=== PATIENT | male | born 1955 | race Asian ===

== ENCOUNTER 2016-10-16 12:00 | Inpatient (IN) | payer OTHER ==
[~2016-10-16] VITALS: Ht 167.6 cm; Wt 75.7 kg
[2016-10-23] VITALS (17 sets, daily range): BP systolic 104–134; BP diastolic 7–85
[2016-10-23] MEDS ORDERED: NKM (05:54)
[2016-10-23] MEDS ORDERED: Thrombin 5000 units TOPIC ONE (06:29)
[2016-10-23] MEDS ORDERED: Surgicel 4in x 8in TOPIC ONE (06:30)
[2016-10-23] MEDS ORDERED: Heparin 5000 units/ml inj ONE (06:30)
[2016-10-23] MEDS ORDERED: Lidocaine 1% Plain 30 ml INJ ONE ×2 (06:30→07:00)
[2016-10-23] MEDS ORDERED: Bacitracin 50000 Units Vial ONE (06:30)
[2016-10-23] MEDS ORDERED: LR 1000ml 1,000 ML IVLG SCH (06:35)
--- NOTE | 2016-10-23 06:39 | Anethesia Preoperative Eval ---
Anesthesia Pre-op PMH/ROS General Date of Evaluation: Oct 23, 2016 Time of Evaluation: 07:08 Anesthesiologist: Ruben ASA Score: ASA 2 Mallampati Score Class I : Soft palate, uvula, fauces, pillars visible Class II: Soft palate, uvula, fauces visible Class III: Soft palate, base of uvula visible Class IV: Only hard plate visible Mallampati Classification: Class II Surgeon: Manuel Diagnosis: Back Pain Surgical Procedure: ALIF L4-5, PSF Screws, Intrstuments Anesthesia History: none Family History: no anesthesia problems Allergies: Coded Allergies: No Known Allergies (Unverified , 10/22/16) Medications: see eMAR Past Medical History Cardiovascular: Reports: other - HL PSxH Narrative: Appendectomy Anesthesia Pre-op Phys. Exam Physician Exam Last Vital Signs Date Time Temp Pulse Resp B/P Pulse Ox O2 Delivery O2 Flow Rate FiO2 10/23/16 06:11 97.2 56 18 123/79 98 Room Air Constitutional: NAD Neurologic: CN 2-12 intact Cardiovascular: RRR Respiratory: CTA Gastrointestinal: S/NT/ND Airway Exam Mallampati Score: Class II MO: full ROM: full Teeth: intact Anesthesia Pre-op A/P Risk Assessment & Plan Assessment: ASA 2 Plan: GA, BIS, Glidescope Status Change Before Surgery: No Pre-Antibiotics Dru Grams Ancef IV Given Within 1 Hr of Incision: Yes Time Given: 07:31 Daniele Miranda MD Oct 23, 2016 06:39
[2016-10-23] MEDS ORDERED: fentaNYL 100 mcg/2 mL IV PRN (06:45)
[2016-10-23] MEDS ORDERED: Norco 5mg/325mg tab ORAL PRN (06:45)
[2016-10-23] MEDS ORDERED: Atropine Inj 1mg/10ml Syr IV PRN (06:45)
[2016-10-23] MEDS ORDERED: LORazepam Inj 2mg/ml 1ml IV PRN (06:45)
[2016-10-23] MEDS ORDERED: Meperidine 25mg/0.5ml Inj (FOR RIGORS ONLY) IV PRN (06:45)
[2016-10-23] MEDS ORDERED: Ketorolac 60mg Inj IV PRN (06:45)
[2016-10-23] MEDS ORDERED: Norco 7.5mg/325mg tab ORAL PRN (06:45)
[2016-10-23] MEDS ORDERED: Hydromorphone 0.5mg/0.5ml inj IVP PRN (06:45)
[2016-10-23] MEDS ORDERED: Oxycodone/Acetaminophen 5-325 ORAL PRN (06:45)
[2016-10-23] MEDS ORDERED: Metoclopramide 10mg/2ml Inj IVP PRN (06:45)
[2016-10-23] MEDS ORDERED: Ketorolac 30mg Inj IV PRN (06:45)
[2016-10-23] MEDS ORDERED: DiphenhydrAMINE 50mg/ml Inj IVP PRN (06:45)
[2016-10-23] MEDS ORDERED: Midazolam 2mg/2ml Inj IVP PRN (06:45)
[2016-10-23] MEDS ORDERED: fentaNYL 100 mcg/2 mL IV ONE (07:00)
[2016-10-23] MEDS ORDERED: Midazolam 2mg/2ml Inj ONE (07:00)
[2016-10-23] MEDS ORDERED: Zemuron 50mg/5ml Inj IV ONE (07:00)
[2016-10-23] MEDS ORDERED: Dexamethasone 4mg/ml vial ONE (07:00)
[2016-10-23] MEDS ORDERED: Ketamine 500mg Inj ONE (07:00)
[2016-10-23] MEDS ORDERED: Sterile Water Irrig 1000ml IRRIG ONE (07:00)
[2016-10-23] MEDS ORDERED: Lidocaine 1% MPF 10mg/ml 5ml ONE (07:00)
[2016-10-23] MEDS ORDERED: fentaNYL 250mcg/5ml ONE (07:00)
[2016-10-23] MEDS ORDERED: Glycopyrrolate 0.2mg/ml 1ml Vial ONE (07:00)
[2016-10-23] MEDS ORDERED: NS Irrig 1000ml ONE (07:00)
[2016-10-23] MEDS ORDERED: LR 1000ml ONE (07:00)
[2016-10-23] MEDS ORDERED: Acetaminophen (Non formulary) 100 ML IV ONE (07:00)
[2016-10-23] MEDS ORDERED: Neostigmine 1mg/ml 10ml Inj ONE (07:00)
[2016-10-23] MEDS ORDERED: Acetaminophen (Non formulary) 1,000 MG/100 ML ML IV ONE (07:00)
[2016-10-23] MEDS ORDERED: Propofol 10mg/ml 100ml btl IV ONE (07:00)
[2016-10-23] MEDS ORDERED: Dexamethasone 20mg/5ml IVP ONE (07:00)
[2016-10-23] MEDS ORDERED: ceFAZolin sod 1 GM in NS 55 ML IVPB ONE (07:00)
[2016-10-23] MEDS ORDERED: Labetalol 5mg/ml 20ml vial IV ONE (07:00)
--- NOTE | 2016-10-23 07:19 | Pre-Procedure Note/Attestation ---
Pre-Procedure Note/Attestation Complete Prior to Procedure Planned Procedure: not applicable Procedure Narrative: L4-5: anterior interbody fusion, device, bmp fusion, internal fixation Posterior pedicle scrwe instrumentation fusion. 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 I attest that, if there was a reasonable possibility of needing a blood transfusion, the patient (or the patient's legal account retention representative) was given the [place] [facility] standardized written summary, pursuant to the [place] Blood Safety Act ([place] Health and Safety Code # 1645, as amended). I attest that I re-evaluated the patient just prior to the surgery and that there has been no change in the patient's H&P, except as documented below: AMY BUTT Oct 23, 2016 07:19
--- NOTE | 2016-10-23 07:47 | Immediate Post-Op Evaluation ---
Immediate Post-Op Evalulation Immediate Post-Op Evalulation Procedure: ALIF L4-5, PSF Screws, Intrstuments Date of Evaluation: Oct 23, 2016 Time of Evaluation: 11:54 IV Fluids: 1000 LR Blood Products: 0 Estimated Blood Loss: 75 Urinary Output: 200 Blood Pressure Systolic: 104 Blood Pressure Diastolic: 72 Pulse Rate: 57 Respiratory Rate: 16 O2 Sat by Pulse Oximetry: 100 Temperature (Fahrenheit): 97.6 Pain Score (1-10): 3 Nausea: No Vomiting: No Complications 0 Patient Status: awake, reacts, patent, extubated, none Hydration Status: adequate Dru Grams Ancef IV Given Within 1 Hr of Incision: Yes Time Given: 07:31 Daniele Miranda MD Oct 23, 2016 07:47
[2016-10-23] MEDS ORDERED: Vancomycin 1gm inj IVPB ONE (10:53)
--- NOTE | 2016-10-23 11:21 | Brief Operative Note ---
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 Xray SSEP motor, local Surgeon: Manuel Rizo MD, MD Supervisor Shop: Posterior Nitin CALI Anesthesiologist: Ruben Anesthesia: general Specimen: none Complications: none Condition: stable Estimated Blood Loss: minimal Drains: none Implant(s) used?: Yes AMY BUTT Oct 23, 2016 11:21
[2016-10-23] MEDS ORDERED: HYDROmorphone 1mg/ml Carpuject SUBQ PRN (11:30)
[2016-10-23] MEDS ORDERED: traMADol 50mg tab ORAL PRN (12:30)
[2016-10-23] MEDS: PCA HYDROmorphone 1mg/ml 30 ML IV PRN (12:54)
[2016-10-23] MEDS ORDERED: Naloxone 0.4mg/ml Inj IVP PRN (13:00)
[2016-10-23] MEDS ORDERED: PCA HYDROmorphone 1mg/ml 30 ML IV PRN (13:00)
--- NOTE | 2016-10-23 13:37 | Diagnostic Imaging Report ---
Indication: PAIN, intraoperative Technique: Intraoperative images Comparison: None Findings: Initial localizer image demonstrates a surgical tool at the anterior aspect of what is presumably the L4-5 disc. Subsequent images document placement of a disc prosthesis or spacer at what is presumably L4-5, as well as posterior fusion hardware bridging L4-5. Impression: Intraoperative imaging, as described
[2016-10-23] MEDS: D5 1/2NS 1,000 ML IV SCH ×2 (14:30→22:30)
[2016-10-23] MEDS ORDERED: Rate Change PCA 1 Each MISC PRN (14:45)
[2016-10-23] MEDS ORDERED: Hydromorphone 0.5mg/0.5ml inj SUBQ PRN (15:00)
[2016-10-23] MEDS ORDERED: Chloraseptic Spray 20mL Bottle ORAL PRN (15:00)
[2016-10-23] MEDS ORDERED: ceFAZolin sod 1 GM in D5W 55 ML IV SCH (15:30)
--- NOTE | 2016-10-23 18:00 | Operative Note - Dictated ---
DATE OF OPERATION: 10/22/2016 VASCULAR SURGEON: Shalom Iraheta M.D. SPINE SURGEON: Abhi Jackson M.D. PREOPERATIVE DIAGNOSIS: Degenerative disk disease. POSTOPERATIVE DIAGNOSIS: Degenerative disk disease. PROCEDURE: Anterior retroperitoneal exposure of L4-L5 vertebral interspace. INDICATIONS: The patient is a very pleasant gentleman, who is seen in my office prior to surgery, being scheduled for anterior fusion at L4-L5. He has no history of anterior abdominal surgery. No history of deep venous thrombosis or bleeding complications was described. He has been made aware of the risks of surgery including possibility of vascular injury, possible need for blood transfusion, and deep venous thrombosis. DESCRIPTION OF FINDINGS: A low vertical midline incision was used. A left retroperitoneal approach was used. There was no peritoneal or ureteral violation. There was no vascular injury. Exposure of L4-L5 was obtained by retraction of the left iliac vessels towards the patient's right and division of the left iliolumbar vein. Fluoroscopy was used to confirm the appropriate levels prior to instrumentation. On completion, the peritoneum and ureter were intact. Iliac vessels were intact and the patient had blood loss of approximately 100 mL. DESCRIPTION OF PROCEDURE: The patient was taken to the operating room, general anesthesia was used. IV antibiotics were given. The patient's abdomen was prepped and draped. Appropriate time-out of procedure was taken. A low vertical midline incision was used. The anterior fascia was incised longitudinally midline. A plane was identified posterior to the left rectus abdominis and developed posterolaterally towards the patient's left. The retroperitoneal space was entered below the arcuate line. The peritoneum and ureter were mobilized towards the patient's right exposing the left common iliac vessels. Dissection was carried to the left side. The left iliac artery and vein were identified and ligated with vascular clips. The anterior surface of L4-L5 was easily palpated. The iliolumbar vein was identified and encircled using a 2-0 silk tie and then triply ligated proximally and distally with vascular clips. This allowed us to mobilize the left common vessels towards the patient's right and expose the anterior surface of L4-L5. The Omni retractor was then set in place. Fluoroscopy was used to confirm the appropriate level and then instrumentation was performed at L4-L5 dictated separately. On completion, the peritoneum and ureter were intact. Iliac vessels were intact. Anterior fascia was then closed using #1 PDS in running fashion. The skin and subcutaneous tissue were closed using 3-0 Vicryl and 4-0 Monocryl in a running subcuticular closure technique. ESTIMATED BLOOD LOSS: Less than 100 mL. COMPLICATIONS: None. Shalom Gianni Iraheta DR: NATALY JOB#: [id number] CC: Abhi Jackson M.D.
[2016-10-23] MEDS: PCA shift volume MISC SCH (19:23)
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
[2016-10-23] MEDS: ceFAZolin sod 1 GM in D5W 55 ML IV SCH (21:59)
[2016-10-24] VITALS: BP 100/61
[2016-10-24 04:00] VITALS: BP 93/59
[2016-10-24] MEDS: ceFAZolin sod 1 GM in D5W 55 ML IV SCH ×2 (05:29→14:18)
[2016-10-24] MEDS: D5 1/2NS 1,000 ML IV SCH ×3 (05:31→20:54)
[2016-10-24] MEDS: PCA shift volume MISC SCH ×2 (07:00→19:00)
[2016-10-24 08:00] VITALS: BP 103/67
[2016-10-24] MEDS ORDERED: D5 1/2NS 1000ml IV ONE (10:48)
[2016-10-24] MEDS ORDERED: Tubing IV Secondary IV ONE (10:48)
--- NOTE | 2016-10-24 11:17 | 48 Hour Post Anesthesia Eval ---
Post Anesthesia Evaluation Procedure: ALIF L4-5, PSF Screws, Intrstuments Date of Evaluation: Oct 24, 2016 Time of Evaluation: 11:16 Nausea: No Vomiting: No Hydration Status: adequate Follow-up care needed: N/A Piedad Pena MD Oct 24, 2016 11:17
[2016-10-24 12:00] VITALS: BP 108/71
--- NOTE | 2016-10-24 14:42 | General Progress Note ---
Progress Note Progress Note POD 1 AVSS Ambulatory preop Back Pain resolved n/c intact - flatus Plan: increase gait d/c kinga advance diet when flatus AMY BUTT Oct 24, 2016 14:42
[2016-10-24] MEDS: PCA HYDROmorphone 1mg/ml 30 ML IV PRN (14:43)
[2016-10-24 16:00] VITALS: BP 101/65
--- NOTE | 2016-10-24 16:45 | Progress Note ---
DATE: 10/24/2016 REASON FOR CONSULTATION: Acute pain consult. Medication administration record reviewed. Medications include Mylanta, Soma, Catapres, IV fluids, Benadryl, Kapolei, DIALYSIS NURSE Dilaudid, Narcan, Protonix, Chloraseptic spray, Phenergan, and tramadol. LABORATORY STUDIES: No interval laboratory studies. PHYSICAL EXAMINATION: VITAL SIGNS: Afebrile, pulse 57, respirations 18, blood pressure 103/87, and oxygen saturation 96% on room air. I spent over 60 minutes in consultation. I saw the patient at bedside with Chinese civil designer and the nurse RN Nata. Patient is moving all extremities x4 and has already ambulated out of bed. He still has not yet passed flatus after his anterior lumbar interbody fusion surgery. The patient will remain NPO except for medications and ice chips until there is a better evidence for yazdanism of bowel function with positive flatus. For adequate hydration, the patient remains on IV fluids. The patient denies any shortness of breath or chest pain. I did encourage aggressive use of incentive spirometer. The patient has been using his DIALYSIS NURSE with good efficacy I will continue the Dilaudid DIALYSIS NURSE at this time and I have also encouraged p.r.n. doses of the Soma along with Kapolei and tramadol along with subcutaneous breakthrough Dilaudid to help wean off the DIALYSIS NURSE unit. The patient has no nausea symptoms and is very pleasant and in good spirits. The patient lives at home with his . We will continue the patient on Protonix for GI ulcer prophylaxis. Overall, the patient is progressing very well after his extensive lumbar spine fusion surgery yesterday. We will await return of bowel function and continue to increase the patient's ambulation as tolerated. Laureano Mccarthy M.D. DR: SHERYL JOB#: [id number] CC:
--- NOTE | 2016-10-24 19:41 | Cardiology Progress Note ---
Assessment/Plan Assessment/Plan [id number] dvt ppx ivf pain managmen ambualte when allow pos whenhas flauts adn bmp home when eats adn walks Objective Last 24 Hour Vital Signs Date Time Temp Pulse Resp B/P Pulse Ox O2 Delivery O2 Flow Rate FiO2 10/24/16 16:00 98.2 64 16 101/65 93 Room Air 10/24/16 16:00 20 10/24/16 15:13 97.2 10/24/16 14:00 20 10/24/16 12:00 97.2 54 16 108/71 97 Room Air 10/24/16 12:00 18 10/24/16 08:00 18 10/24/16 08:00 96.2 57 16 103/67 96 Room Air 10/24/16 04:00 16 10/24/16 04:00 98.1 58 18 93/59 97 Room Air 10/24/16 00:00 18 10/24/16 00:00 98.1 58 16 100/61 97 Room Air 10/23/16 20:00 18 10/23/16 20:00 97.5 66 18 108/68 94 Room Air Intake and Output 10/23/16 10/24/16 19:00 07:00 Intake Total 1825 ml 1375 ml Output Total 1755 ml 1000 ml Balance 70 ml 375 ml Intake IV Total 1825 ml 1375 ml Output Urine Total 1680 ml 1000 ml Estimated Blood Loss 75 ml TAMMI HORNE Oct 24, 2016 19:41
[2016-10-24 20:00] VITALS: BP 118/75
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
[2016-10-25 04:00] VITALS: BP_SYST 116; BP_SYST 147; BP_DIAS 75
[2016-10-25] MEDS: D5 1/2NS 1,000 ML IV SCH ×4 (04:29→20:56)
[2016-10-25] MEDS: PCA shift volume MISC SCH (07:17)
--- NOTE | 2016-10-25 07:30 | Progress Note ---
DATE: 10/25/2016 ACUTE PAIN MANAGEMENT PHYSICIAN PROGRESS NOTE MEDICATIONS: Medication administration record reviewed. Medications include tramadol, Phenergan, Chloraseptic, Protonix, Zofran, Narcan, Dilaudid TIME PIECE REPAIRER, Marshall, Benadryl, Catapres, Soma, and Mylanta. LABORATORY STUDIES: No interval laboratory studies. OBJECTIVE: VITAL SIGNS: Afebrile. Pulse 69, respirations 18, oxygen saturation 97% on room air, and blood pressure 118/75. I spent over 60 minutes in consultation today. I discussed the case with the surgeon, Dr. Abhi Jackson along with the night nurse. The patient have been able to sleep overnight and has been using his TIME PIECE REPAIRER units primarily. He has been ambulating extremely well and infrequently. At this point, on postoperative day #2, I will discontinue this TIME PIECE REPAIRER at 9 a.m. later today. He will continue with the breakthrough doses of, Soma, Marshall, and breakthrough Dilaudid injections for analgesia. The patient has not been using tramadol, so I will discontinue that medication to simplify his analgesic regimen to reduce the risk of medication administration errors. The patient has been compliant using his incentive spirometer. The patient still has not yet passed positive flatus, to demonstrate improvement in bowel function. We will continue his diet, is NPO except for medications and ice chips for now and will likely advance his diet once there is positive flatus. We will continue to monitor the patient's vital signs. I did encourage aggressive use of incentive spirometer. Laureano Mccarthy M.D. DR: LISA JOB#: [id number] CC:
[2016-10-25 08:00] VITALS: BP 119/73
[2016-10-25 12:00] VITALS: BP 119/78
[2016-10-25 16:00] VITALS: BP 110/74
[2016-10-25] MEDS: Tamsulosin 0.4mg cap ORAL SCH (17:25)
[2016-10-25] MEDS: Ciprofloxacin 500mg tab ORAL SCH (17:25)
[2016-10-25] MEDS: Norco 10mg/325mg tab ORAL PRN (17:29)
--- NOTE | 2016-10-25 18:17 | Cardiology Progress Note ---
Assessment/Plan Assessment/Plan 1. Lumbar instability. 2. Sinus bradycardia. 3. Hyperlipidemia. 4. neurogenic bladder appreciate dr mulligan input an help now has a donato catheter will need to dc hoem with foely understand the need to fuw with dr hayes dvt ppx ivf pain managmen ambualte when allow pos whenhas flauts adn bmp home when eats adn walks septrads for uti preventiion d/w dr handy Subjective Cardiovascular: Denies: chest pain, lightheadedness, palpitations Respiratory: Denies: SOB with excertion Gastrointestinal/Abdominal: Reports: abdominal pain Genitourinary: Reports: other - unable to urinate Objective Last 24 Hour Vital Signs Date Time Temp Pulse Resp B/P Pulse Ox O2 Delivery O2 Flow Rate FiO2 10/25/16 16:00 97.0 68 20 110/74 97 Room Air 10/25/16 12:00 98.2 76 20 119/78 97 Room Air 10/25/16 09:00 18 10/25/16 08:00 18 10/25/16 08:00 97.3 73 20 119/73 97 Room Air 10/25/16 04:00 99.0 66 18 147/75 95 Room Air 10/25/16 04:00 99.0 66 18 116/75 95 Room Air 10/25/16 04:00 18 10/25/16 02:51 98.4 10/25/16 00:03 20 10/24/16 21:59 20 10/24/16 20:00 98.4 69 18 118/75 97 Room Air 10/24/16 20:00 20 General Appearance: alert Neck: supple Cardiovascular: normal rate, regular rhythm Respiratory/Chest: lungs clear, normal breath sounds Abdomen: soft, hypoactive bowel sounds, tender Extremities: no swelling, other - pneumoatic stocking in palce Intake and Output 10/24/16 10/25/16 19:00 07:00 Intake Total 500 ml 1500 ml Output Total 1150 ml Balance -650 ml 1500 ml Intake IV Total 500 ml 1500 ml Output Urine Total 1150 ml # Voids 1 Microbiology Date/Time Source Procedure Growth Status 10/23/16 07:19 Nasal Nares MRSA Culture - Final NO METHICILLIN RESISTANT STAPH AUREUS... Complete TAMMI HORNE Oct 25, 2016 18:17
[2016-10-25 20:00] VITALS: BP 131/72
[2016-10-26] VITALS: BP 114/75
--- NOTE | 2016-10-26 00:15 | Consultation ---
DATE OF CONSULTATION: 10/25/2016 CONSULTING PHYSICIAN: Talia Kramer M.D. REFERRING PHYSICIAN: Abhi Jackson M.D. REASON FOR CONSULTATION: Urinary retention status post disk surgery. PRESENT ILLNESS: This is a 61-year-old, Slov[place] male, who underwent disk procedure yesterday and had the Barnes catheter removed today and the patient could not urinate and went into urinary retention. The patient was catheterized few times, but failed to urinate. The last attempt to catheterize failed by several nurses and bladder scan revealed over 900 mL of residual urine. The patient gave a history of weak stream and nocturia few times and difficulty with urination in the past; however, he was not placed on any kind of medication and evaluated by urologist. PHYSICAL EXAMINATION: The patient was found to have suprapubic distention of the bladder up to the umbilicus, very tender. External genitalia, uncircumcised phallus. Descended normal testicles. Rectal exam was not done secondary to the patient's discomfort. At this time, a #18 Barnes catheter was obtained. After injecting 10 mL of lubricant, the Barnes catheter was guided. He was found to have resistance and blockage at the prostatic urethra, which was maneuvered and bladder was entered. The patient had about 1200 mL of residual urine, which was clear. RECOMMENDATION: The patient has to have the indwelling Barnes catheter for at least for 5 days. We will start alpha-olga Flomax 0.4 mg daily after dinner and we will see the the patient in the office in 5 days to discontinue the Barnes catheter and give him a trial to void. Thank you very much for giving me opportunity to see the patient. Talia Kramer M.D. DR: LJ JOB#: [id number] CC:
[2016-10-26 04:00] VITALS: BP 118/74
[2016-10-26] MEDS: D5 1/2NS 1,000 ML IV SCH ×4 (05:11→21:37)
[2016-10-26] MEDS: Norco 10mg/325mg tab ORAL PRN ×2 (05:30→21:35)
[2016-10-26] MEDS ORDERED: Magnesium Citrate Liq Btl ORAL PRN (07:30)
[2016-10-26 08:00] VITALS: BP 120/77
[2016-10-26 08:24] LABS: ANION GAP 10 (5-15); CALCIUM 8.3 mg/dL (8.6-10.2); CARBON DIOXIDE 25 mEQ/L (20-30); CHLORIDE 100 mEQ/L (98-107); GLOMERULAR FILTRATION RATE > 60 mL/min (>60); HEMOLYSIS 4; POTASSIUM 3.4 mEQ/L (3.4-4.9); SODIUM 135 mEQ/L (135-145)
[2016-10-26] MEDS ORDERED: Magnesium Citrate Liq Btl ORAL ONE (08:30)
[2016-10-26] MEDS: Ciprofloxacin 500mg tab ORAL SCH ×2 (08:35→17:17)
--- NOTE | 2016-10-26 08:45 | Progress Note ---
DATE: 10/26/2016 ACUTE PAIN MANAGEMENT PHYSICIAN PROGRESS NOTE MEDICATIONS: Medication administration record reviewed. Medications include IV fluids, Protonix, ciprofloxacin, and Flomax. P.r.n. medications include Soma, Catapres, Chloraseptic spray, Benadryl, [place], Mylanta, Zofran, Phenergan, and Dilaudid. LABORATORY DATA: Laboratory studies, no interval laboratory studies. OBJECTIVE: VITAL SIGNS: Pain level is 4/10 on the visual analog pain scale. Afebrile, pulse 63, respirations 20, blood pressure 118/74, and oxygen saturation 97% on room air. I spent over 60 minutes in consultation today. I saw the patient at bedside with the nurse RN, Laly and discussed the case with the surgeon, Dr. Jackson. The patient continues to do well. He is ambulating very well. He is moderately compliant using his incentive spirometer. I encouraged more aggressive usage. He is passing flatus and has been advanced to clear liquids. He has no nausea symptoms so I have asked the nursing team to advance his diet quickly. I also bolus him with a dose of magnesium citrate this morning to help with bowel catholic. I have left a prescription for [place] for outpatient usage. The patient's will visit today and may even take him home if he is able to have a bowel movement. Dressing appears clean and dry. The patient has no nausea symptoms. The patient did have urinary retention issues yesterday. A Barnes catheter was reinserted per orders of Urology. Presumptively, the Barnes catheter will remain in place for up to a week in the outpatient setting to be removed later with Urology follow up as an outpatient. The patient is in good spirits and shows no anxiety. The patient denies any shortness of breath or chest pain. I will defer DVT prophylaxis to the surgeon. Laureano Mccarthy M.D. DR: MALIK JOB#: [id number] CC:
[2016-10-26] MEDS ORDERED: Tubing IV Secondary IV ONE (10:48)
[2016-10-26] MEDS ORDERED: D5 1/2NS 1000ml IV ONE (10:48)
[2016-10-26 11:53] VITALS: BP 115/69
[2016-10-26 16:00] VITALS: BP 109/69
[2016-10-26] MEDS: Tamsulosin 0.4mg cap ORAL SCH (17:16)
--- NOTE | 2016-10-26 18:21 | Cardiology Progress Note ---
Assessment/Plan Assessment/Plan continue physical therapy pain control abx Subjective Subjective the patient is resting just completed physical therapy, doing well Objective Last 24 Hour Vital Signs Date Time Temp Pulse Resp B/P Pulse Ox O2 Delivery O2 Flow Rate FiO2 10/26/16 16:00 98.2 69 20 109/69 97 Room Air 10/26/16 11:53 97.9 71 18 115/69 98 Room Air 10/26/16 08:00 98.4 74 20 120/77 98 Room Air 10/26/16 06:33 98.6 10/26/16 04:00 97.0 63 20 118/74 97 Room Air 10/26/16 00:00 98.6 69 20 114/75 97 Room Air 10/25/16 20:00 97.3 75 19 131/72 98 Room Air General Appearance: no apparent distress, alert EENT: PERRL/EOMI Neck: non-tender Rhythm: NSR Cardiovascular: normal rate Respiratory/Chest: lungs clear Abdomen: non tender Extremities: no swelling Intake and Output 10/25/16 10/26/16 19:00 07:00 Intake Total 1615 ml 1875 ml Output Total 1925 ml 2000 ml Balance -310 ml -125 ml Intake Oral 240 ml 500 ml IV Total 1375 ml 1375 ml Output Urine Total 1925 ml 2000 ml Laboratory Tests Test 10/26/16 06:20 Sodium Level 135 mEQ/L (135-145) Potassium Level 3.4 mEQ/L (3.4-4.9) Chloride Level 100 mEQ/L (98-107) Carbon Dioxide Level 25 mEQ/L (20-30) Anion Gap 10 (5-15) Blood Urea Nitrogen 11 mg/dL (7-23) Creatinine 1.0 mg/dL (0.7-1.2) Estimat Glomerular Filtration Rate > 60 mL/min (>60) Glucose Level 163 mg/dL (74-106) H Calcium Level 8.3 mg/dL (8.6-10.2) FARIDEH ARAUJO Oct 26, 2016 18:21
[2016-10-26 20:00] VITALS: BP 106/58
[2016-10-27] VITALS: BP 109/61
[2016-10-27 04:00] VITALS: BP 95/60
[2016-10-27 07:37] VITALS: BP 130/77
[2016-10-27] MEDS: Ciprofloxacin 500mg tab ORAL SCH (09:12)
[2016-10-27] MEDS: D5 1/2NS 1,000 ML IV SCH (09:13)
[2016-10-27 11:57] VITALS: BP 110/73
--- NOTE | 2016-10-27 12:15 | Progress Note ---
DATE: 10/27/2016 ACUTE PAIN MANAGEMENT PHYSICIAN PROGRESS NOTE MEDICATIONS: Medication administration record reviewed. Medications include Flomax, Phenergan, Chloraseptic spray, Protonix, Zofran, magnesium citrate, Dilaudid, [place], Benadryl, Catapres, ciprofloxacin, Soma, and Mylanta. LABORATORY AND DIAGNOSTIC DATA: Laboratory studies from yesterday, 10/26/2016 shows sodium 135, potassium 3.4, chloride 100, bicarbonate 25, BUN 11, creatinine 1.0, glucose 153, and calcium 8.9. OBJECTIVE: VITAL SIGNS: Afebrile. Pulse 77, respirations 20, blood pressure 138/77, and oxygen saturation 96% on room air. I spent over 60 minutes in consultation today. I saw the patient at the bedside with the nurse RN, Selma. Also discussed the case in detail with the surgeon, Dr. Abhi Jackson. The patient's Barnes catheter remains in place until the patient follows up with outpatient Urology in 48 hours. The patient is on ciprofloxacin and Flomax, which I will defer to Urology. The patient's pain is adequately controlled on oral hydrocodone pills. The prescription left for the yesterday, has already been filled as an outpatient pharmacies, so the patient does have available oral pain medications discharge is to home. The patient has been advancing his diet without any difficulties. He is passing positive flatus and had a very large bowel movement earlier this morning after dosing with magnesium citrate. The patient's will be able to assist for activities daily living at home. I did encourage continued use of the incentive spirometer for good pulmonary toilet. The nurse will review showering instructions with the surgeon. The patient denies any shortness of breath or chest pain. The patient is pleasant and in good spirits, with no anxiety evident. At this point, if the surgeon agrees, see no contraindication for discharge trial home. The patient will follow up in outpatient surgical clinic in approximately 2 weeks with surgeon, Dr. Abhi Jackson. Laureano Mccarthy M.D. DR: CE JOB#: [id number] CC:
[2016-10-27] MEDS ORDERED: D5 1/2NS 1000ml IV ONE (15:00)
[2016-10-27] MEDS ORDERED: CIPRO500 MG PO (15:07)
[2016-10-27] MEDS ORDERED: NORCO 10-325 T1 EACH ORAL (15:08)
[2016-10-27] MEDS ORDERED: UROXATRAL10 M2 PO (15:10)
[2016-10-27] MEDS: Norco 10mg/325mg tab ORAL PRN (15:14)
[2016-10-27 15:43] VITALS: BP 129/89
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
== END 2016-10-27 16:30 | disposition home or self-care (01) | DRG 460 ==
LOC: SDSOVERFLO 10-23 05:14 → 3E 10-23 14:19
DX: M53.2X7 Spinal instabilities, lumbosacral region (principal); E78.5 Hyperlipidemia, unspecified; M51.36 Other intervertebral disc degeneration, lumbar region; V89.2XXS Person injured in unspecified motor-vehicle accident, traffic, sequela; N40.0 Benign prostatic hyperplasia without lower urinary tract symptoms; K57.90 Diverticulosis of intestine, part unspecified, without perforation or abscess without bleeding; R33.9 Retention of urine, unspecified; G89.18 Other acute postprocedural pain
CPT/HCPCS: 36415; 72020; 76001; 80048; 86850; 86900; 86901; 87081; 94003; 94150; J2250; J2405; J2710; J8499

== ENCOUNTER 2017-02-12 07:00 | Inpatient (IN) | payer OTHER ==
[~2017-02-12] VITALS: Ht 167.6 cm; Wt 74.8 kg
[~2017-02-12 07:00] MED LIST: CIPRO500 MG PO; NKM; NORCO 10-325 T1 EACH ORAL; UROXATRAL10 M2 PO
[2017-03-06] VITALS (13 sets, daily range): BP systolic 120–141; BP diastolic 71–96
[2017-03-06] MEDS ORDERED: Norco 10mg/325mg tab ORAL PRN (06:00)
[2017-03-06] MEDS ORDERED: traMADol 50mg tab ORAL PRN (06:00)
[2017-03-06] MEDS ORDERED: HYDROmorphone 1mg/ml Carpuject SUBQ PRN (06:00)
[2017-03-06] MEDS ORDERED: LR 1000ml 1,000 ML IVLG SCH (06:29)
[2017-03-06] MEDS ORDERED: Ketorolac 60mg Inj IV PRN (06:30)
[2017-03-06] MEDS ORDERED: Atropine Inj 1mg/10ml Syr IV PRN (06:30)
[2017-03-06] MEDS ORDERED: Norco 5mg/325mg tab ORAL PRN (06:30)
[2017-03-06] MEDS ORDERED: Norco 7.5mg/325mg tab ORAL PRN (06:30)
[2017-03-06] MEDS ORDERED: LORazepam Inj 2mg/ml 1ml IV PRN (06:30)
[2017-03-06] MEDS ORDERED: Metoclopramide 10mg/2ml Inj IVP PRN (06:30)
[2017-03-06] MEDS ORDERED: fentaNYL 100 mcg/2 mL IV PRN (06:30)
[2017-03-06] MEDS ORDERED: Acetaminophen (Non formulary) 100 ML IV ONE (06:30)
[2017-03-06] MEDS ORDERED: Midazolam 2mg/2ml Inj IVP PRN (06:30)
[2017-03-06] MEDS ORDERED: Hydromorphone 0.5mg/0.5ml inj IVP PRN (06:30)
[2017-03-06] MEDS ORDERED: Ketorolac 30mg Inj IV PRN (06:30)
[2017-03-06] MEDS ORDERED: DiphenhydrAMINE 50mg/ml Inj IVP PRN (06:30)
[2017-03-06] MEDS ORDERED: oxyCODONE HCL/Acetaminophen 5/325mg ORAL PRN (06:30)
--- NOTE | 2017-03-06 06:31 | Anethesia Preoperative Eval ---
Anesthesia Pre-op PMH/ROS General Date of Evaluation: Mar 06, 2017 Time of Evaluation: 07:09 Anesthesiologist: Ruben ASA Score: ASA 2 Mallampati Score Class I : Soft palate, uvula, fauces, pillars visible Class II: Soft palate, uvula, fauces visible Class III: Soft palate, base of uvula visible Class IV: Only hard plate visible Mallampati Classification: Class II Surgeon: Manuel Diagnosis: Neck Pain Surgical Procedure: ACDF C4-5, C5-6, C6-7, Plate Anesthesia History: none Family History: no anesthesia problems Allergies: Coded Allergies: No Known Allergies (Unverified , 10/22/16) Medications: see eMAR Past Medical History Cardiovascular: Reports: other - HL PSxH Narrative: Appendectomy, ALIF, PSF 10/2016 Anesthesia Pre-op Phys. Exam Physician Exam Last Vital Signs Date Time Temp Pulse Resp B/P (MAP) Pulse Ox O2 Delivery O2 Flow Rate FiO2 03/06/17 05:57 97.4 63 20 120/80 97 Room Air Constitutional: NAD Neurologic: CN 2-12 intact Cardiovascular: RRR Respiratory: CTA Gastrointestinal: S/NT/ND Airway Exam Mallampati Score: Class II MO: limited ROM: limited Teeth: intact Anesthesia Pre-op A/P Risk Assessment & Plan Assessment: ASA 2 Plan: GA, BIS, GlideScope Status Change Before Surgery: No Pre-Antibiotics Dru Grams Ancef IV Given Within 1 Hr of Incision: Yes Time Given: 07:22 Daniele Miranda MD Mar 06, 2017 06:31
--- NOTE | 2017-03-06 06:37 | Immediate Post-Op Evaluation ---
Immediate Post-Op Evalulation Immediate Post-Op Evalulation Procedure: ACDF C4-5, C5-6, C6-7, Plate Date of Evaluation: Mar 06, 2017 Time of Evaluation: 10:40 IV Fluids: 1000 LR Blood Products: 0 Estimated Blood Loss: 25 Urinary Output: 350 Blood Pressure Systolic: 136 Blood Pressure Diastolic: 96 Pulse Rate: 68 Respiratory Rate: 16 O2 Sat by Pulse Oximetry: 100 Temperature (Fahrenheit): 97 Pain Score (1-10): 3 Nausea: No Vomiting: No Complications 0 Patient Status: awake, reacts, patent, extubated, none Hydration Status: adequate Dru Grams Ancef IV Given Within 1 Hr of Incision: Yes Time Given: 07:22 Daniele Miranda MD Mar 06, 2017 06:37
[2017-03-06] MEDS ORDERED: Thrombin 5000 units TOPIC ONE (06:47)
[2017-03-06] MEDS ORDERED: Surgicel 4in x 8in TOPIC ONE (06:47)
[2017-03-06] MEDS ORDERED: Vancomycin 1gm inj IVPB ONE (06:48)
[2017-03-06] MEDS ORDERED: Lidocaine 1% Plain 30 ml INJ ONE (06:48)
[2017-03-06] MEDS ORDERED: Bupivacaine 0.5% Inj 30 ml vial INJ ONE (06:49)
[2017-03-06] MEDS ORDERED: Sodium Chloride 10ml vial INJ ONE (07:00)
[2017-03-06] MEDS ORDERED: Neostigmine 1mg/ml 10ml Inj ONE (07:00)
[2017-03-06] MEDS ORDERED: Naloxone 0.4mg/ml Inj ONE (07:00)
[2017-03-06] MEDS ORDERED: Dexamethasone 20mg/5ml IVP ONE (07:00)
[2017-03-06] MEDS ORDERED: fentaNYL 100 mcg/2 mL IV ONE (07:00)
[2017-03-06] MEDS ORDERED: Propofol 1,000mg/ 100ml btl IV ONE (07:00)
[2017-03-06] MEDS ORDERED: Zemuron 50mg/5ml Inj IV ONE (07:00)
[2017-03-06] MEDS ORDERED: Sterile Water Irrig 1000ml IRRIG ONE (07:00)
[2017-03-06] MEDS ORDERED: ePHEDrine 50mg/ml Inj ONE (07:00)
[2017-03-06] MEDS ORDERED: Glycopyrrolate 0.2mg/ml 1ml Vial ONE (07:00)
[2017-03-06] MEDS ORDERED: LR 1000ml ONE (07:00)
[2017-03-06] MEDS ORDERED: NS Irrig 1000ml ONE (07:00)
[2017-03-06] MEDS ORDERED: Ketorolac 30mg Inj ONE (07:00)
[2017-03-06] MEDS ORDERED: Sterile Water For Irrig 2000ml IRRIG ONE (07:00)
[2017-03-06] MEDS ORDERED: Lidocaine 1% MPF 10mg/ml 5ml ONE (07:00)
[2017-03-06] MEDS ORDERED: ceFAZolin sod 1 GM in NS 55 ML IVPB ONE (07:00)
--- NOTE | 2017-03-06 07:18 | Pre-Procedure Note/Attestation ---
Pre-Procedure Note/Attestation Complete Prior to Procedure Planned Procedure: not applicable Procedure Narrative: ACDF C4-5, C5-6, C6-7 Plate C4-5-6-7 Indications for Procedure Pre-Operative Diagnosis: Post trauma discogenic neck pain Attestation I attest that I discussed the nature of the procedure; its benefits; risks and complications; and alternatives (and the risks and benefits of such alternatives ), prior to the procedure, with the patient (or the patient's legal livestock sales representative). I attest that, if there was a reasonable possibility of needing a blood transfusion, the patient (or the patient's legal livestock sales representative) was given the [place] Department of Health Services standardized written summary, pursuant to the [place] Blood Safety Act ([place] Health and Safety Code # 1645, as amended). I attest that I re-evaluated the patient just prior to the surgery and that there has been no change in the patient's H&P, except as documented below: AMY BUTT Mar 06, 2017 07:18
--- NOTE | 2017-03-06 10:14 | Brief Operative Note ---
Immediate Post Operative Note Operative Note Pre-op Diagnosis: Post trauma discogenic neck pain Procedure: Hemivertebrectomy C4, C5, C6, C7 Correction Deformity C5-6, C6-7 Titanium Interbody device / fusion C4-5 C5-6, C6-7 Osteopromotive Material C4-5, C5-6, C6-7 Anterior Internal Plate fixation C4-5-6-7 Xray High Power Magnification Post-op Diagnosis: same as pre-op Findings: consistent w/pre-op dx studies Surgeon: Manuel GAUTHIER Tar Heat Exchanger Cleaner: Nitin CALI Anesthesiologist: Ruben GAUTHIER Anesthesia: general Specimen: none Complications: none Condition: stable Fluids: anesthesia Estimated Blood Loss: minimal Drains: none Implant(s) used?: Yes AMY BUTT Mar 06, 2017 10:14
[2017-03-06] MEDS ORDERED: Bacitracin 50000 Units Vial ONE (10:42)
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
[2017-03-06] MEDS: D5 1/2NS 1,000 ML IV SCH ×2 (12:42→20:30)
[2017-03-06] MEDS: ceFAZolin sod 1 GM in D5W 55 ML IVPB SCH ×2 (14:38→22:00)
[2017-03-06] MEDS ORDERED: ceFAZolin 1gm/50ml Premix 50 ML IV SCH (15:00)
[2017-03-06] MEDS ORDERED: NORCO 10-325 T1 EACH ORAL (15:06)
[2017-03-06] MEDS ORDERED: PREDNISONE20 MG ORAL (15:08)
--- NOTE | 2017-03-06 15:45 | Operative Note - Dictated ---
DATE OF OPERATION: 03/06/2017 SURGEON: Abhi Jackson, Ph.D., M.D. PUNCH CARD OPERATOR: KARELY Tobar. ANESTHESIOLOGIST: Daniele Miranda M.D. ANESTHESIA: General with intubation. ADMITTING/PREOPERATIVE DIAGNOSIS: Posttraumatic discogenic cervical neck pain. POSTOPERATIVE DIAGNOSIS: Posttraumatic discogenic cervical neck pain. PROCEDURE: 1. Vicente-vertebrectomy at C4, C5, C6, and C7. 2. Interbody reconstruction fusion titanium with correction deformity at C4-C5, C5-C6, and C6-C7. 3. Application of osteopromotive material at C4-C5, C5-C6, and C6-C7. 4. Anterior internal fixation at C4, C5, C6, and C7. 5. Intraoperative fluoroscopy interpreted by surgeon. 6. High-power microscopic dissection. 7. SSEP monitoring. ESTIMATED BLOOD LOSS: Minimal. POSTOPERATIVE CONDITION: Good/stable. COMPLICATIONS: None. PROCEDURE IN DETAIL: The patient was brought to the operating room and in the supine position, general anesthesia with intubation was induced. Intravenous antibiotics and intravenous Decadron were administered prior to incision time. Anterior cervical spine was sterilely prepped and draped free in usual sterile fashion. A longitudinal left incision paralleling the medial aspect of the left sternocleidomastoid was sharply placed through dermis and epidermis overlying the appropriate intervals. Electrocautery dissection was carried through the subcutaneous tissue to the level of the platysmas muscle that was identified, isolated, and transected in line with the incision. Blunt dissection was sequentially carried through the deep cervical and pretracheal fascia to the midline between the right and left longus colli muscles. Dissection was carried medial to the carotid sheath. Levels determined under fluoroscopic guidance-sterile conditions with markers in place. Position marked. Longus colli muscles were elevated bilaterally not exceeding 3 mm in the mediolateral extent subperiosteally over the involved intervals. Retractors were placed at C4-C5. Anterior osteophyte was resected. Vicente-vertebrectomy at inferior C4 and superior C5. Interpositional graft with the appropriate dimension lordotic titanium graft containing osteopromotive material tapped at C4-C5. Fit excellent. Retractors were placed at the C5-C6 interval. Large anterior osteophyte noted. Osteophyte resected with Midas Nuno bur dissection under high-power magnification. Vicente-vertebrectomy to the posterior longitudinal ligament inferior C5 and superior C6. Interpositional grafting. Titanium lordotic graft with appropriate dimensions containing osteopromotive material. Tapped into position. Fit excellent. Correction deformity. Attention was turned for placement of the retractors at C6-C7. Large anterior osteophyte resected with Midas Nuno bur dissection under high-power magnification. Vicente-vertebrectomy at inferior C6 and superior C7 vertebra followed with interpositional graft of the appropriate dimensions titanium containing osteopromotive material lordotic. Correction deformity. Fit excellent. A 10 pounds of traction on the neck was removed. Anterior internal plate fixation was undertaken with bilateral screws at C4, C5, C6, and C7. Fluoroscopic guidance utilized demonstrating correct levels and position is excellent. Wound was irrigated with antibiotic-containing saline. FloSeal applied. Exploration did not reveal any obvious excoriation or laceration of vital structures. Vancomycin powder placed. Reapproximation with Vicryl suture material of the platysmas muscle followed with reapproximation of dermis and epidermis with a subcuticular suture. Transverse surgical strips followed with a sterile bandage application that was maintained in place with tape. The patient was awakened, extubated in the operating room, and transported to postop recovery in good stable condition. Abhi Jackson M.D. DR: VENICE JOB#: [id number] CC:
[2017-03-06] MEDS: Chloraseptic Spray 20mL Bottle ORAL PRN ×2 (16:04→19:06)
[2017-03-06] MEDS ORDERED: Tamsulosin 0.4mg cap ORAL ONE (18:00)
--- NOTE | 2017-03-06 20:36 | Cardiology Progress Note ---
Assessment/Plan Assessment/Plan [id number] Objective Last 24 Hour Vital Signs Date Time Temp Pulse Resp B/P (MAP) Pulse Ox O2 Delivery O2 Flow Rate FiO2 03/06/17 18:06 98.6 03/06/17 15:53 98.6 95 21 126/80 100 03/06/17 15:53 100 Nasal Cannula 3.0 03/06/17 13:30 98.1 91 20 128/78 99 03/06/17 13:30 99 Nasal Cannula 3.0 03/06/17 12:48 98.7 70 19 129/81 97 03/06/17 12:48 97 Nasal Cannula 3.0 03/06/17 12:18 97 Nasal Cannula 3.0 03/06/17 12:18 97.5 68 19 126/80 97 03/06/17 11:37 98.6 62 20 131/86 100 Nasal Cannula 3.0 03/06/17 11:36 97.0 03/06/17 11:23 60 20 136/87 100 Simple Mask 8.0 03/06/17 11:10 60 20 141/94 100 Simple Mask 8.0 03/06/17 10:54 60 20 136/87 100 Simple Mask 8.0 03/06/17 10:39 63 20 139/95 100 Simple Mask 8.0 03/06/17 10:34 68 20 141/96 100 Simple Mask 8.0 03/06/17 10:30 68 16 100 03/06/17 10:29 97.3 72 20 136/96 100 Simple Mask 8.0 03/06/17 05:57 97.4 63 20 120/80 97 Room Air Intake and Output 03/06/17 03/07/17 19:00 07:00 Intake Total 2215.0 ml Output Total 885 ml Balance 1330.0 ml Intake Oral 650 ml IV Total 1565.0 ml Output Urine Total 860 ml Estimated Blood Loss 25 ml # Voids 1 TAMMI HORNE Mar 06, 2017 20:36
[2017-03-06] MEDS ORDERED: Tamsulosin 0.4mg cap ORAL SCH (21:00)
[2017-03-07] MEDS: Norco 10mg/325mg tab ORAL PRN ×2 (00:31→07:15)
[2017-03-07 00:40] VITALS: BP 117/79
[2017-03-07] MEDS ORDERED: ceFAZolin sod 1 GM in NS 55 ML IVPB ONE (01:30)
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
--- NOTE | 2017-03-07 02:30 | Consultation ---
DATE OF CONSULTATION: 03/06/2017 This is an urgent consultation. CONSULTING PHYSICIAN: Jimenez Arana M.D. REFERRING PHYSICIAN: Dann Lopez M.D. REASON FOR CONSULTATION: For difficult catheterization. HISTORY OF PRESENT ILLNESS: This 61-year-old male has a history of posttraumatic viscerogenic cervical neck pain. He is status post cervical with fusion and internal fixation. Postoperatively, the patient's Barnes was taken out. He was not able to urinate. Nursing staff were not able to insert the Barnes. Urology evaluation is requested. The patient does have a history of difficult catheterization in the past. PAST MEDICAL HISTORY: Chart was reviewed. Again, as above, history of BPH and hyperlipidemia. PAST SURGICAL HISTORY: As above. MEDICATIONS: Current medication list was reviewed. PHYSICAL EXAMINATION: GENERAL: A well-developed and well-nourished male. He has suprapubic fullness. His initial vitals were stable. ABDOMEN: Shows suprapubic fullness. GENITOURINARY: Reveals a palpable plastic or silicone in the penile shaft. RECTAL: Reveals a firm prostate about 40 grams. LABORATORY AND DIAGNOSTIC DATA: Of note, creatinine is 1.0 in October. IMPRESSION: 1. Urinary retention. 2. Benign prostatic hypertrophy. 3. Neurogenic bladder. PLAN AND DISCUSSION: I was able to pass a 16-Mohawk Coude catheter into the bladder after which there was return of clear yellow urine. The catheter was left to gravity drainage. I would recommend for him to be discharged with a Barnes catheter with outpatient followup when he is more ambulatory, voiding trial and to continue with Flomax and Uroxatral. Jimenez Arana M.D. DR: LUIS M JOB#: [id number] CC:
[2017-03-07 04:00] VITALS: BP 121/74
[2017-03-07] MEDS: D5 1/2NS 1,000 ML IV SCH (04:33)
[2017-03-07] MEDS: Chloraseptic Spray 20mL Bottle ORAL PRN (06:39)
[2017-03-07 08:00] VITALS: BP 110/65
[2017-03-07] MEDS ORDERED: Norco 10mg/325mg tab ORAL ONE (08:00)
--- NOTE | 2017-03-07 08:49 | Urology Progress Note ---
Assessment/Plan Assessment/Plan 1. Urinary retention. 2. Benign prostatic hypertrophy. 3. Neurogenic bladder. go home with donato and leg bag flomax and uroxatral outpt f/u for cysto and voiding trial d/w Dr. Lopez Subjective Allergies: Coded Allergies: No Known Allergies (Unverified , 10/22/16) Subjective all noted, going home today Objective Last 24 Hour Vital Signs Date Time Temp Pulse Resp B/P (MAP) Pulse Ox O2 Delivery O2 Flow Rate FiO2 03/07/17 08:36 97.6 03/07/17 04:00 97.6 71 18 121/74 94 03/07/17 04:00 Room Air 03/07/17 00:40 97.2 92 18 117/79 94 03/07/17 00:00 Room Air 03/06/17 20:28 97.9 72 19 134/71 96 03/06/17 20:00 Room Air 03/06/17 18:06 98.6 03/06/17 15:53 98.6 95 21 126/80 100 03/06/17 15:53 100 Nasal Cannula 3.0 03/06/17 13:30 98.1 91 20 128/78 99 03/06/17 13:30 99 Nasal Cannula 3.0 03/06/17 12:48 98.7 70 19 129/81 97 03/06/17 12:48 97 Nasal Cannula 3.0 03/06/17 12:18 97 Nasal Cannula 3.0 03/06/17 12:18 97.5 68 19 126/80 97 03/06/17 11:37 98.6 62 20 131/86 100 Nasal Cannula 3.0 03/06/17 11:36 97.0 03/06/17 11:23 60 20 136/87 100 Simple Mask 8.0 03/06/17 11:10 60 20 141/94 100 Simple Mask 8.0 03/06/17 10:54 60 20 136/87 100 Simple Mask 8.0 03/06/17 10:39 63 20 139/95 100 Simple Mask 8.0 03/06/17 10:34 68 20 141/96 100 Simple Mask 8.0 03/06/17 10:30 68 16 100 03/06/17 10:29 97.3 72 20 136/96 100 Simple Mask 8.0 Current Medications Medications (Trade) Dose Ordered Sig/Alexey Route PRN Reason Start Time Stop Time Status Last Admin Dose Admin Acetaminophen/ Hydrocodone Bitart ([place] 10/325) 1 ea Q3H PRN ORAL Mild Pain (Pain Scale 1-3) 03/06/17 09:00 03/13/17 08:59 03/07/17 07:15 Al Hydroxide/Mg Hydroxide (Mylanta) 15 ml Q1H PRN ORAL gi upset 03/06/17 06:30 Al Hydroxide/Mg Hydroxide (Mylanta) 30 ml Q6H PRN ORAL GERD 03/06/17 06:00 04/05/17 05:59 Alfuzosin HCl (Uroxatrol) 10 mg DAILY ORAL 03/06/17 20:00 04/05/17 19:59 03/07/17 08:35 Atropine Sulfate (Atropine) 0.5 mg Q5M PRN IV HR <40 03/06/17 06:30 Carisoprodol (Soma) 350 mg Q8H PRN ORAL SPASM 03/06/17 06:15 04/05/17 06:14 03/06/17 17:07 Cetylpyridinium Chloride (Cepacol) 1 lozenge Q2H PRN GYPSY SORE THROAT 03/06/17 06:00 04/05/17 05:59 03/07/17 06:39 Dextrose/Sodium Chloride 1,000 ml @ 125 mls/hr Q8H IV 03/06/17 12:30 04/05/17 12:29 03/07/17 04:33 Diphenhydramine HCl (Benadryl) 25 mg Q15M PRN IVP Itching 03/06/17 06:30 Diphenhydramine HCl (Benadryl) 25 mg Q6H PRN ORAL Itching 03/06/17 06:00 04/05/17 05:59 Fentanyl Citrate (Sublimaze 100 mcg/2 mL) 25 mcg Q10M PRN IV Moderate Pain (Pain Scale 4-6) 03/06/17 06:30 Hydralazine HCl (Apresoline) 5 mg Q30M PRN IV SBP>160 / DBP>90 03/06/17 06:30 Hydromorphone HCl (Dilaudid) 0.5 mg Q15M PRN IVP Severe Pain (Pain Scale 7-10) 03/06/17 06:30 03/06/17 11:23 Hydromorphone HCl (Dilaudid) 0.5 mg Q3H PRN SUBQ Severe Breakthru Pain (>7) 03/06/17 06:00 03/13/17 05:59 Lorazepam (Ativan 2mg/ml 1ml) 1 mg Q15M PRN IV For Anxiety 03/06/17 06:30 Metoclopramide HCl (Reglan) 10 mg Q1H PRN IVP Nausea & Vomiting 03/06/17 06:30 Midazolam HCl (Versed 2mg/2ml vial) 1 mg Q15M PRN IVP For Anxiety 03/06/17 06:30 Ondansetron HCl (Zofran) 4 mg Q1H PRN IVP Nausea & Vomiting 03/06/17 06:30 Ondansetron HCl (Zofran) 4 mg Q4HR PRN IVP Nausea & Vomiting 03/06/17 06:00 04/05/17 05:59 Pantoprazole (Protonix) 40 mg BEDTIME ORAL 03/06/17 21:00 04/05/17 20:59 03/07/17 00:31 Phenol/Menthol (Chloraseptic) 1 spray Q3H PRN ORAL SORE THROAT 03/06/17 06:00 04/05/17 05:59 03/07/17 06:39 Promethazine HCl (Phenergan) 12.5 mg Q8HR PRN IM Nausea & Vomiting 03/06/17 06:00 04/05/17 05:59 Tamsulosin HCl (Flomax) 0.4 mg Q24H ORAL 03/07/17 18:00 04/06/17 17:59 Tramadol HCl (Ultram) 50 mg Q8HR PRN ORAL Moderate Pain (Pain Scale 4-6) 03/06/17 06:00 03/13/17 05:59 Height (Feet): 5 Height (Inches): 6.00 Weight (Pounds): 165 Objective exam stable ROSARIO HARTMAN Mar 07, 2017 08:49
--- NOTE | 2017-03-07 09:01 | Progress Note ---
DATE: 03/07/2017 ACUTE PAIN MANAGEMENT PHYSICIAN PROGRESS NOTE MEDICATIONS: Medication administration record reviewed. Medications include IV fluids, Protonix, Uroxatral, and Flomax. P.r.n. medications include Chloraseptic spray, Cepacol, Benadryl, Dilaudid, Mylanta, Zofran, Phenergan, Ultram, Soma, Ativan, and [place]. LABORATORY STUDIES: No interval laboratory studies. OBJECTIVE: VITAL SIGNS: Pain level is 4/10 on the visual analog pain scale. Afebrile, pulse 71, respirations 18, blood pressure 121/74, and oxygen saturation 94% on room air. I spent over 60 minutes in consultation today. I saw the patient at the bedside with a Yi shake backboard notcher, Melody. Overnight, Dr. Lopez evaluated the patient with urinary retention issues. A urologist eventually was consulted, who inserted a Barnes catheter and recommended the patient be discharged to home with a Barnes catheter in place. Apparently, the patient had not had his prostate medicine for the past two weeks, as he had no supply. The patient did refill his prescription yesterday. Hopefully with resolution of postoperative swelling, the Barnes catheter can be removed in the several days per the urologist's recommendations without sequela. The patient is having mild penile irritation from the repeated Barnes catheter insertion attempts. The patient also is having mild pain from his neck surgery. The patient denies any shortness of breath or chest pain. He is swallowing, breathing, and phonating within normal limits. I did encourage the patient to use the Cepacol lozenges with Chloraseptic spray, which were provided by the nurse at the bedside. The patient has a good supply of hydrocodone already at home, which he tolerates well. I have encouraged continued usage now and the patient will continue with hydrocodone at home, of which he has a good supply. The patient denies any shortness of breath or chest pain. He has been compliant using his incentive spirometer. The patient is in good spirits and appears compliant with the recommended treatment. The patient has been tolerating liquids without nausea symptoms. At this point, I see no contraindication for discharge trial home. I discussed the case with the surgeon, Dr. Jackson. The neck dressing appears clean and dry. Laureano Mccarthy M.D. DR: MALIK JOB#: [id number] CC:
[2017-03-07] MEDS ORDERED: Tubing IV Secondary IV ONE (09:29)
[2017-03-07] MEDS ORDERED: D5 1/2NS 1000ml IV ONE (09:29)
[2017-03-07 10:20] VITALS: BP 123/87
--- NOTE | 2017-03-07 10:20 | 48 Hour Post Anesthesia Eval ---
Post Anesthesia Evaluation Procedure: ACDF C4-5, C5-6, C6-7, Plate Date of Evaluation: Mar 07, 2017 Time of Evaluation: 10:00 Blood Pressure Systolic: 123 0: 87 Pulse Rate: 82 Respiratory Rate: 18 Temperature (Fahrenheit): 97 O2 Sat by Pulse Oximetry: 99 Airway: patent Nausea: No Vomiting: No Pain Intensity: 0 If pain is > 6 Comment: 0 Hydration Status: adequate Post-Anesthesia Complications: none Follow-up care needed: patient intructions given Laureano Tomlin M.D. Mar 07, 2017 10:20
[2017-03-07] MEDS ORDERED: Tamsulosin 0.4mg cap ORAL SCH (18:00)
[2017-03-10] MEDS ORDERED: TAMSULOSIN HCL0.4 MG ORAL (08:16)
[2017-03-10] MEDS ORDERED: UROXATRAL10 M2 PO (08:16)
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
== END 2017-03-07 09:30 | disposition home or self-care (01) | DRG 473 ==
LOC: SDSOVERFLO 03-06 05:08 → 3E 03-06 11:55
PROC: 0RG20A0 Fusion of 2 or more Cervical Vertebral Joints with Interbody Fusion Device, Anterior Approach, Anterior Column, Open Approach (ICD-10-PCS; principal; 2017-03-06 07:00)
DX: M50.121 Cervical disc disorder at C4-C5 level with radiculopathy (principal); N31.8 Other neuromuscular dysfunction of bladder; N40.1 Benign prostatic hyperplasia with lower urinary tract symptoms; R33.8 Other retention of urine; E78.5 Hyperlipidemia, unspecified; V89.2XXS Person injured in unspecified motor-vehicle accident, traffic, sequela; M51.34 Other intervertebral disc degeneration, thoracic region; M51.37 Other intervertebral disc degeneration, lumbosacral region
CPT/HCPCS: 36415; 86850; 86900; 86901; 87081; 94003; 94150; J2405; J2710